=== PATIENT | male | born 1985 | race Caucasian/White ===

== ENCOUNTER 2017-09-25 19:28 | Emergency (ER) | payer SELFPAY ==
[2017-09-25 19:35] VITALS: BP 134/94; BMI 19.9
[2017-09-25] MEDS ORDERED: VIBRAMYCIN PO ONE ×2 (20:32→20:52)
--- NOTE | 2017-09-25 20:56 | DR.GENAD ---
HPI - PCP Primary Care Physician: nfd - Complaint/Symptoms Chief Complaint Doctors Comments: bitten by something last night(?fire ant) small amt of drainage but redness swelling and painn started this morning. No fevers. Tetanus <5 yrs ago. Pt also stepped on a nail left foot 2 days ago, but he doesn't want Xrays or tx for this. Chief Complaint:: bite on rle, redness, edema, warm to touch o/s last night. i also stepped on a nail last night, it was aubree. puncture wound noted to bottom of left foot. site was washed, alcohol applied. has appt with cesario de luna in am. - Source History Provided: Patient - Timing Onset of Chief Complaint: 09/24/17 PMH - PMH Past Medical History: Yes (old injury rt leg ) Past Surgical History: Yes Surgical History: Ortho Surgery - Family History History of Family Medical Conditions: No Family Medical History: Hypertension - Social History Type of Tobacco Use: Cigarettes Alcohol Use: None Do you use any recreational Drugs:: No Lives Where: Home - infectious screening Have you traveled outside the country in the last 6 months?: No Isolation: Standard ROS - Review of Systems Constitutional: negative: Chills, Fever Eyes: No Symptoms Reported ENTM: No Symptoms Reported Respiratoy: No Symptoms Reported Cardiovascular: No Symptoms Reported Gastrointestinal/Abdominal: No Symptoms Reported Genitourinary: No Symptoms Reported Neurological: No Symptoms Reported Musculoskeletal: Right, Leg, Foot Integumentary: Lesions Hematologic/Lymphatic: No Symptoms Reported Endocrine: No Symptoms Reported Psychiatric: No Symptoms Reported All Other Systems: Reviewed and Negative PE - Vital Signs Vitals: Temperature 100.1 F Pulse Rate 82 Respiratory Rate 18 Blood Pressure 134/94 O2 Sat by Pulse Oximetry 100 - General Limitations: No Limitations General Appearance: Alert, In No Apparent Distress, Anxious (very anxious and worried) - Head Head Exam: Normal Inspection - Eyes Eye exam: Normal Appearance - ENT ENT Exam: Normal Exam - Neck Neck Exam: Normal Inspection, Full ROM, Trachea Midline. negative: Tenderness, Meningismus - Chest Chest Inspection: Symmetric Chest Wall Rise - Respiratory Respiratory Exam: Normal Lung Sounds Bilat Respiratory Exam: Bilateral Clear to Auscultation - Cardiovascular Cardiovascular Exam: Regular Rate, Normal Heart Sounds. negative: Systolic Murmur, Diastolic Murmur - Abdominal Exam Abdominal Exam: Normal Inspection, Normal Bowel Sounds, Soft - Extremities Extremities Exam: Tenderness, Normal Capillary Refill, Edema, Other (rt lower leg with 2x2cm area of erythema. No abscess formation. Appearance c/w early cellulitis, no lymphangitis, tender, no drainage) - Neurologic Neurological Exam: Alert, Oriented X3 - Psychiatric Psychiatric Exam: Anxious - Skin Skin Exam: Warm, Dry, Erythema (pt has a punctate lesion left forefoot but no surrounding erythema. No palpable FB. Pt urged top get Xray to look for FB but he declines. His tetanus UTD ) - Diagnosis Discharge Problem: Cellulitis of leg, Puncture wound of plantar aspect of foot without complication - Discharge Plan Disposition: HOME, SELF-CARE Condition: Stable Prescriptions: Doxycycline Hyclate 100 mg PO BID 10 Days #20 tablet. Ketorolac Tromethamine [Toradol Tab] 10 mg PO Q8H PRN #12 tab PRN Reason: Pain - Follow ups/Referrals Follow ups/Referrals: NFD,None [Primary Care Provider] - 3 days - Instructions
== END 2017-09-25 20:57 | disposition home or self-care (01) ==
LOC: ER 19:38
DX: L03.116 Cellulitis of left lower limb (principal); S91.332A Puncture wound without foreign body, left foot, initial encounter; W45.8XXA Other foreign body or object entering through skin, initial encounter; Y92.9 Unspecified place or not applicable
CPT/HCPCS: 99282

== ENCOUNTER 2017-10-26 08:43 | Emergency (ER) | payer SELFPAY ==
[2017-10-26 08:48] VITALS: BMI 19.3
[2017-10-26] MEDS ORDERED: ADACEL TDaP IM ONE ×2 (08:53→08:54)
[2017-10-26] MEDS ORDERED: XYLOCAINE 1 % (PLAIN) IM ONE (08:53)
--- NOTE | 2017-10-26 09:00 | DR.GENAD ---
HPI - PCP Primary Care Physician: nfd - Complaint/Symptoms Chief Complaint Doctors Comments: Occurence was about 40 mins. prior to arrival in ED. He states that he got a new staple gun and was testing it out. The FB was into his right hand and he is right handed. Chief Complaint:: patient shot a staple in his left hand and he has what he said was worms in his nose - Nurses notes reviewed Nurses Notes Review: Yes - Source History Provided: Patient - Mode of Arrival Mode of Arrival: Ambulatory - Timing Onset of Chief Complaint: 10/26/17 PMH - PMH Past Medical History: No Past Surgical History: No Surgical History: Ortho Surgery - Family History History of Family Medical Conditions: No Family Medical History: Hypertension - Social History Does patient currently use any type of tobacco product: Yes Have you used tobacco products in the last 12 months: Yes Type of Tobacco Use: Cigarettes How many years tobacco product used: 12 Does any household member use tobacco: No Alcohol Use: None Do you use any recreational Drugs:: No Lives With: Family Lives Where: Home - infectious screening In the last 2 months have you had wt loss of >10#?: NO Have you had fever, night sweats or hemotysis?: No Have you traveled outside the country in the last 6 months?: No Isolation: Standard ROS - Review of Systems Constitutional: No Symptoms Reported Eyes: No Symptoms Reported ENTM: No Symptoms Reported Respiratoy: No Symptoms Reported Cardiovascular: No Symptoms Reported Gastrointestinal/Abdominal: No Symptoms Reported Genitourinary: No Symptoms Reported Neurological: No Symptoms Reported Musculoskeletal: No Symptoms Reported Integumentary: Other (a staple in his right hand) Hematologic/Lymphatic: No Symptoms Reported Endocrine: No Symptoms Reported Psychiatric: No Symptoms Reported PE - Vital Signs Vitals: Temperature 98.9 F Pulse Rate 118 Respiratory Rate 16 Blood Pressure 142/100 O2 Sat by Pulse Oximetry 100 - General Limitations: No Limitations General Appearance: Alert, In No Apparent Distress - Head Head Exam: Normal Inspection - Eyes Eye exam: Normal Appearance - ENT ENT Exam: Normal Exam - Neck Neck Exam: Normal Inspection - Chest Chest Inspection: Normal Inspection - Respiratory Respiratory Exam: Normal Lung Sounds Bilat - Cardiovascular Cardiovascular Exam: Regular Rate, Normal Rhythm, +S1, +S2 - Abdominal Exam Abdominal Exam: Normal Inspection, Normal Bowel Sounds, Soft - Extremities Extremities Exam: Normal Inspection - Back Back Exam: Normal Inspection - Neurologic Neurological Exam: Alert, Oriented X3, Normal Gait - Skin Skin Exam: Warm, Dry, Intact, Normal Color, Other (a single commercial type staple is noted embedded in the soft tissue of his right palm, about the thenar eminence. ) - Diagnosis Discharge Problem: Foreign body hand - Discharge Plan Condition: Stable - Follow ups/Referrals Follow ups/Referrals: NFD,None [Primary Care Provider] - 3 days - Instructions Additional Notes - Additional Notes Additional Notes: 1 cc of 1% lidocaine was infiltrated into the soft tissue about the FB on his Rt. palm. After anesthetic efect was attained, the staple was pulled out of the palm with needle mckeon. He tolerated this well.
[2017-10-26] MEDS ORDERED: BACITRACIN ZINC ONE (09:02)
[2017-10-26 09:09] VITALS: BP 138/91
== END 2017-10-26 09:18 | disposition home or self-care (01) ==
LOC: ER 08:49
DX: S60.551A Superficial foreign body of right hand, initial encounter (principal); W45.8XXA Other foreign body or object entering through skin, initial encounter; Y92.9 Unspecified place or not applicable
CPT/HCPCS: 90471; 99281; 99282